=== PATIENT | female | born 1985 | race Two or more races ===

== ENCOUNTER 2024-04-07 06:05 | Emergency (ER) | payer BC, MEDICAID ==
[~2024-04-07] VITALS: Ht 160 cm; Wt 110.5 kg
[2024-04-07 06:27] LABS: Urine Bacteria None Seen /hpf (None Seen)
[2024-04-07 06:46] LABS: Urine Blood 2+ /uL (Negative); Urine Clarity Clear (Clear); Urine Color Light-Yellow (Yellow); Urine Mucus FEW (None Seen); Urine Protein, UAD Negative (Negative); Urine Specific Gravity 1.023 (1.001-1.035); Urine Squamous Epithelial Cell FEW /hpf (<5); Urine Urobilinogen Normal (Negative); Urine WBC <1 /hpf (0 - 5)
[2024-04-07 06:51] VITALS: PULSE 100; RESP 22; O2SAT 97
[2024-04-07] MEDS: ONDANSETRON ODT 4 MG TAB PO ONE (06:51)
[2024-04-07] MEDS: HYDROcodone-ACET 5/325MG TAB PO ONE (06:51)
--- NOTE | 2024-04-07 06:52 | ED.PDOC ---
General HPI Comments 38Y F with PMHx PCOS presents to ED for chief complaint lt flank pain. Additional symptoms include hematuria, urinary frequency, dysuria, vomiting, and diarrhea. Per pt, unknown if she is but LMP was "a few days ago". Pt drinks alcohol occasionally. Pt denies tobacco and illicit drug use. No known allergies. Chief Complaint: Flank Pain Time Seen by MD: 06:15 Reviewed notes: Nurses Notes, Medications, Allergies Allergies: Coded Allergies: NO KNOWN ALLERGIES (Unverified , 04/07/24) Home Meds Active Scripts Tamsulosin Hcl (Flomax) 0.4 Mg Cap, 1 CAP PO DAILY for 10 Days, #10 CAP 11 Refills Prov:DIANNA ROQUE MD 04/07/24 Ondansetron Odt 4MG Tab (ZOFRAN PO) 4 Mg Tb, 4 MG PO Q6HPRN PRN for 3 Days, #12 TAB ODT TAB-DISSOLVE IN MOUTH, THEN SWALLOW Prov:DIANNA ROQUE MD 04/07/24 Hydrocodone-Acetaminophen (Hydrocodone Bitartrate/AC 5-325 mg) 1 Tab Tab, 1 TAB PO Q6HPRN PRN for 3 Days, #12 TAB Prov:DIANNA ROQUE MD 04/07/24 Information Source: Patient Mode of Arrival: Ambulatory Severity: Moderate Timing: Other Duration: Since onset Onset: Spontaneous Symptoms: Dysuria, Frequency, Hematuria History of: None Location: (L)Flank Modifying factors: None associated signs and symptoms: Vomiting, Dysuria, Frequency, Hematuria, Other Past Medical History Past Medical History (Other): PCOS Surgical History: Denies all surgeries [employer]ER History: Ovarian Cysts (pcos) Family History Family History: Unknown Social History Smoker: Non-Smoker Alcohol: Occasionally Drugs: Denies Drug Use Lives In: Home Constitutional: denies: chills, diaphoresis, fatigue, fever, malaise, sweats, weakness, others EENTM: denies: blurred vision, double vision, ear bleeding, ear discharge, ear drainage, ear pain, ear ringing, eye pain, eye redness, hearing loss, mouth pain, mouth swelling, nasal discharge, nose bleeding, nose congestion, nose pain, photophobia, tearing, throat pain, throat swelling, voice changes, others Respiratory: denies: cough, hemoptysis, orthopnea, SOB at rest, shortness of breath, SOB with excertion, stridor, wheezing, others Cardiovascular: denies: chest pain, dizzy spells, diaphoresis, Dyspnea on exertion, edema, irregular heart beat, left arm pain, lightheadedness, palpitations, PND, syncope, others Gastrointestinal: reports: diarrhea, vomiting; denies: abdomen distended, abdominal pain, blood streaked bowels, constipated, dysphagia, difficulty swallowing, hematemesis, melena, nausea, poor appetite, poor fluid intake, rectal bleeding, rectal pain, others Genitourinary: reports: dysuria, flank pain, frequency, hematuria; denies: abnormal vagina bleeding, burning, dyspareunia, incontinence, pain, , vagina discharge, urgency, others Neurological: denies: dizziness, fainting, headache, left sided numbness, left sided weakness, numbness, paresthesia, pre-existing deficit, right sided numbness, right sided weakness, seizure, speech problems, tingling, tremors, wea kness, others Musculoskeletal: denies: back pain, gout, joint pain, joint swelling, muscle pain, muscle stiffness, neck pain, others Integumetry: denies: bruises, change in color, change in hair/nails, dryness, l aceration, lesions, lumps, rash, wounds, others Allergic/Immunocompromised: denies: Difficulty Healing, Frequent Infections, Hives, Itching, others Hematologic/Lymphatic: denies: anemia, blood clots, easy bleeding, easy bruising, swollen glands, others Endocrine: denies: excessive hunger, excessive sweating, excessive thirst, excessive urination, flushing, intolerance to cold, intolerance to heat, unexplained weight gain, unexplained weight loss, others Psychiatric: denies: anxiety, bipolar disorder, depression, hopeless, panic disorder, schizophrenia, sleepless, suicidal, others All Other Systems: Reviewed and Negative Physical Exam General Appearance: Moderate Distress HEENT: Normal ENT Inspection, Pharynx Normal, TMs Normal Neck: Full Range of Motion, Non-Tender, Normal, Normal Inspection Respiratory: Chest Non-Tender, Lungs Clear, No Accessory Muscle Use, No Respiratory Distress, Normal Breath Sounds Cardiovascular: No Edema, No JVD, No Murmur, No Gallop, Normal Peripheral Pulses, Regular Rate/Rhythm Breast Exam: Deferred Gastrointestinal: No Organomegaly, Non Tender, No Pulsatile Mass, Normal Bowel Sounds, Soft Genitalia: Deferred Pelvic: Deferred Rectal: Deferred Extremities: No calf tenderness, Normal capillary refill, Normal inspection, Normal range of motion, Non-tender, No pedal edema Musculoskeletal : Apperance: Normal Neurologic: Alert, referral agent II-XII nml as Tested, No Motor Deficits, Normal Affect, Normal Mood, No Sensory Deficits Cerebellar Function: Normal Reflexes: Normal Skin: Dry, Normal Color, Warm Lymphatic: No Adenopathy Was a procedure done? Was a procedure done?: No Differential Diagnosis Kidney stone (Female): , Appendicitis, Bowel obstruction, Cholelithiasis, Ectopic , Musculoskeletal pain, Ovarian torsion, Pyelonephritis, Renal failure, Urinary obstruction, Urolithiasis Kidney stone (Male): Bowel obstruction, Cholelithiasis, Hepatitis, Cholangitis, Pancreatitis, Pyelonephritis, Renal failure, Urinary obstruction, Urolithiasis, Urinary tract infection, N/A Penile/Scrotal: N/A Urinary Problem (Male): N/A Urinary Problem (Female): Appendicitis, Ectopic , Impaction, Intrauterine , Pyelonephritis, Urinary retention, Urolithiasis, UTI X-Ray, Labs, Meds, VS Vital Signs Date Time Temp Pulse Resp B/P (MAP) Pulse Ox O2 Delivery O2 Flow Rate FiO2 04/07/24 10:32 97.8 75 16 110/62 (78) 99 97.8 04/07/24 09:17 75 16 96 Room Air 04/07/24 09:17 98.1 75 16 103/58 (73) 96 98.1 04/07/24 06:51 100 22 97 Room Air* 0 21 04/07/24 06:51 99.1 100 22 147/86 (106) 97 99.1 04/07/24 06:13 98.1 96 22 149/104 (119) 99 Lab Test 04/07/24 06:30 04/07/24 06:15 Range/Units White Blood Count 13.3 H 4.4-10.8 10^3/uL Red Blood Count 4.45 4.0-5.20 10^6/uL Hemoglobin 12.2 12.2-16.2 g/dL Hematocrit 37.1 36.0-46.0 % Mean Corpuscular Volume 83.3 80.0-100.0 fL Mean Corpuscular Hemoglobin 27.4 L 28.0-32.0 pg Mean Corpuscular Hemoglobin Concent 32.9 32.0-36.0 g/dL Red Cell Distribution Width 15.2 H 11.8-14.3 % Platelet Count 333 140-450 10^3/uL Mean Platelet Volume 8.6 6.9-10.8 fL Neutrophils (%) (Auto) 63.7 37.0-80.0 % Lymphocytes (%) (Auto) 26.8 10.0-50.0 % Monocytes (%) (Auto) 6.5 0.0-12.0 % Eosinophils (%) (Auto) 2.7 0.0-7.0 % Basophils (%) (Auto) 0.3 0.0-2.0 % Neutrophils # (Auto) 8.4 1.6-8.6 10 ^3/uL Lymphocytes # (Auto) 3.6 0.4-5.4 10 ^3/uL Monocytes # (Auto) 0.9 0-1.3 10 ^3/uL Eosinophils # (Auto) 0.4 0-0.8 10 ^3/uL Basophils # (Auto) 0 0-0.2 10 ^3/uL Nucleated Red Blood Cells 0.0 % Sodium Level 142 136-145 mmol/L Potassium Level 3.6 3.5-5.1 mmol/L Chloride Level 111 H 98-107 mmol/L Carbon Dioxide Level 21 20-31 mmol/L Anion Gap 10 5-15 Blood Urea Nitrogen 15 9-23 mg/dL Creatinine 0.87 0.550-1.02 mg/dL Glomerular Filtration Rate Calc 88 >90 mL/min BUN/Creatinine Ratio 17.2 10.0-20.0 Serum Glucose 138 H 74-106 mg/dL Calcium Level 9.5 8.7-10.4 mg/dL Lipase 41 12-53 U/L Beta HCG, Quantitative 0.3 L 1.5-4.2 mIU/mL Urine Color Light-yellow Yellow Urine Clarity Clear Clear Urine pH 6.0 5.0-9.0 Urine Specific [place] 1.023 1.001-1.035 Urine Protein Negative Negative Urine Ketones Negative Negative Urine Blood 2+ H Negative /uL Urine Nitrite Negative Negative Urine Bilirubin Negative Negative Urine Urobilinogen Normal Negative mg/dL Urine Leukocyte Esterase Negative Negative /uL Urine RBC 25 0 - 4 /hpf Urine WBC <1 0 - 5 /hpf Urine Squamous Epithelial Cells Few <5 /hpf Urine Bacteria None seen None Seen /hpf Urine Mucus Few None Seen Urine Glucose Normal Normal mg/dL [address] [address] Ph: [phone] DIAGNOSTIC IMAGING Diagnostic Imaging Report : [id number] Signed PATIENT: LUZMARIA SIMEON MACCT: [id number] UNIT: [id number] : 1985 LOC: ER ROOM / BED: / AGE / SEX: 38 / F ADM STATUS: REG ER SERVICE 1 ORDERING PHYSICIAN: DIANNA ROQUE MD PROCEDURE(s): ABPL - CT AB PEL WO CON-NO ORAL OR IV REASON: r flank pain ORDER NUMBER(s): [id number], ACCESSION NUMBER(s): [id number] Procedure: CT CT AB PEL WO CON-NO ORAL OR IV 04/07/2024 07:28 AM Indication: r flank pain Comparison Study: None available at time of dictation. Technique: Noncontrast Axial images were obtained and reformatted in coronal and sagittal planes. All CT scans at this medical facility are performed using dose modulation techniques as appropriate to a performed exam including the following: Automated exposure control was utilized; adjustment of the MA and/or KV according to patient size; and use of iterative reconstruction technique. CT Dose: CTDI volume is 26.64 mGy. Dose-length product is 1277.74 mGy*cm FINDINGS: Imaged portions of the lung bases appear unremarkable. Limited noncontrast evaluation of the liver, gallbladder, spleen, pancreas and adrenal glands appear unremarkable. 0.8 cm isodense lesion of the left posterior mid kidney. There is mild right hydronephrosis and hydroureter with 2 obstructing calculi measuring 0.3 and 0.4 cm at the distal ureter approximately 1 cm proximal to the ureterovesicular junction. No free fluid, free air, or adenopathy. No evidence of bowel obstruction. The appendix appears normal. IMPRESSION: 1. 2 tandem 3 and 4 mm distal ureteral calculi approximately 1 cm proximal to the ureterovesicular junction resulting in mild hydroureter and hydronephrosis. 2. 0.8 cm mildly hyperdense lesion of the left kidney likely represent small hemorrhagic cyst. Follow-up outpatient ultrasound is recommended. HS:Y ATED BY: DEMAR CORBETT MD DICTATED DATE/TIME: 04/07/24800 SIGNED BY: DEMAR CORBETT MD SIGNED DATE/TIME: 04/07/24800 CC: Time of 1ST Reevaluation: 06:45 Reevaluation 1ST: Unchanged Time of 2ND Reevaluation: 09:50 Reevaluation 2ND: Resolved Patient Education/Counseling: Diagnosis, Treatment, Prognosis, Need For Follow Up, Other Family Education/Counseling: No Family Present Additional Information due to considerations for more acute intraabdominal causes of her symptoms, including renal failure, renal mass, pyelonephritis, ectopic , i considered admission and possible surgical interventions Tests ordered and results reviewed: CBC, BMP, beta HCG, lipase, UA, CT abd/pelvis WO contrast Independent historians include: None. Dr. Roque interpreted each of the tests and agrees with the result. Results and treatment discussed with the pt and medical personnel. Departure 1 Departure Time of Disposition: 09:51 Impression: Primary Impression: Ureteral stone Disposition: 01 HOME / SELF CARE / HOMELESS Condition: Good e-Prescriptions Tamsulosin Hcl (Flomax) 0.4 Mg Cap 1 CAP PO DAILY for 10 Days, #10 CAP 11 Refills Prov: DIANNA ROQUE MD 04/07/24 Ondansetron Odt 4MG Tab (ZOFRAN PO) 4 Mg Tb 4 MG PO Q6HPRN PRN for 3 Days, #12 TAB ODT TAB-DISSOLVE IN MOUTH, THEN SWALLOW Prov: DIANNA ROQUE MD 04/07/24 Hydrocodone-Acetaminophen (Hydrocodone Bitartrate/AC 5-325 mg) 1 Tab Tab 1 TAB PO Q6HPRN PRN for 3 Days, #12 TAB Prov: DIANNA ROQUE MD 04/07/24 Discharged With: Self Critical Care Note Critical Care Time?: No Stability Stability form required: No I personally scribed for DIANNA ROQUE MD ([email or web address]) on 04/07/24 at 06:52. Electronically submitted by Zandra Escobar ([email or web address]). I personally scribed for DIANNA ROQUE MD ([email or web address]) on 04/07/24 at 08:15. Electronically submitted by Zadnra Escobar ([facility]). I personally scribed for DIANNA ROQUE MD ([facility]) on 04/07/24 at 09:57. Electronically submitted by Zandra Escobar ([facility]). DIANNA ROQUE MD Apr 07, 2024 06:52
[2024-04-07 07:05] LABS: Chloride 111 mmol/L (98-107); Potassium 3.6 mmol/L (3.5-5.1); Sodium 142 mmol/L (136-145)
[2024-04-07 07:06] LABS: Anion Gap 10 (5-15); Calcium 9.5 mg/dL (8.7-10.4); Carbon Dioxide 21 mmol/L (20-31)
[2024-04-07 07:11] LABS: BUN/Creatinine Ratio 17.2 (10.0-20.0); Blood Urea Nitrogen 15 mg/dL (9-23); Glucose 138 mg/dL (74-106); Lipase 41 U/L (12-53)
[2024-04-07 07:15] LABS: Basophils # (auto) 0 10 ^3/uL (0-0.2); Basophils % (auto) 0.3 % (0.0-2.0); Eosinophils # (auto) 0.4 10 ^3/uL (0-0.8); Eosinophils % (auto) 2.7 % (0.0-7.0); Hematocrit 37.1 % (36.0-46.0); Hemoglobin 12.2 g/dL (12.2-16.2); Lymphocytes # (auto) 3.6 10 ^3/uL (0.4-5.4); Lymphocytes % (auto) 26.8 % (10.0-50.0); Mean Corpuscular Hemoglobin 27.4 pg (28.0-32.0); Mean Corpuscular Hgb Conc. 32.9 g/dL (32.0-36.0); Mean Corpuscular Volume 83.3 fL (80.0-100.0); Monocytes # (auto) 0.9 10 ^3/uL (0-1.3); Monocytes % (auto) 6.5 % (0.0-12.0); Neutrophils # (auto) 8.4 10 ^3/uL (1.6-8.6); Neutrophils % (auto) 63.7 % (37.0-80.0); Platelet Count (auto) 333 10^3/uL (140-450); Red Blood Cells 4.45 10^6/uL (4.0-5.20); Red Cell Distribution Width 15.2 % (11.8-14.3); White Blood Cell 13.3 10^3/uL (4.4-10.8)
--- NOTE | 2024-04-07 08:02 | DVH ---
Procedure: CT CT AB PEL WO CON-NO ORAL OR IV 04/07/2024 07:28 AM Indication: r flank pain Comparison Study: None available at time of dictation. Technique: Noncontrast Axial images were obtained and reformatted in coronal and sagittal planes. All CT scans at this medical facility are performed using dose modulation techniques as appropriate t o a performed exam including the following: Automated exposure control was utilized; adjustment of th e MA and/or KV according to patient size; and use of iterative reconstruction technique. CT Dose: CTDI volume is 26.64 mGy. Dose-length product is 1277.74 mGy*cm FINDINGS: Imaged portions of the lung bases appear unremarkable. Limited noncontrast evaluation of the liver, gallbladder, spleen, pancreas and adrenal glands appear unremarkable. 0.8 cm isodense lesion of the left posterior mid kidney. There is mild right hydronephr osis and hydroureter with 2 obstructing calculi measuring 0.3 and 0.4 cm at the distal ureter approxi mately 1 cm proximal to the ureterovesicular junction. No free fluid, free air, or adenopathy. No evidence of bowel obstruction. The appendix appears kat l. IMPRESSION: 1. 2 tandem 3 and 4 mm distal ureteral calculi approximately 1 cm proximal to the ureterovesicular ju nction resulting in mild hydroureter and hydronephrosis. 2. 0.8 cm mildly hyperdense lesion of the left kidney likely represent small hemorrhagic cyst. Follow -up outpatient ultrasound is recommended. HS:Y
[2024-04-07] MEDS: SODIUM CHLORIDE 0.9% 1,000 ML IV ONE (09:10)
[2024-04-07] MEDS: KETOROLAC TROMETH 30 MG/ML 1ML VIAL IV ONE (09:11)
[2024-04-07] MEDS ORDERED: TAMS-35 PO (09:55)
[2024-04-07] MEDS ORDERED: ZOFR4T PO (09:55)
[2024-04-07] MEDS ORDERED: HYDR-4902 PO (09:55)
[2024-04-07 10:32] VITALS: BP 110/62; PULSE 75; RESP 16; TEMP 97.8; O2SAT 99
== END 2024-04-07 10:33 | disposition home or self-care (01) ==
LOC: ER 06:05
DX: N13.2 Hydronephrosis with renal and ureteral calculous obstruction (principal); R10.2 Pelvic and perineal pain; Z79.899 Other long term (current) drug therapy
CPT/HCPCS: 36415; 74176; 80048; 81001; 83690; 84702; 85025; 96361; 96374; 99285; J1885; J7030; Q0162

== ENCOUNTER 2024-05-03 08:47 | Inpatient (IN) | payer BC ==
[~2024-05-03] VITALS: Ht 160 cm; Wt 111.3 kg
[~2024-05-03 08:47] MED LIST: HYDR-4902 PO; TAMS-35 PO; ZOFR4T PO
--- NOTE | 2024-05-03 09:13 | ED.PDOC ---
General HPI Comments 38 year old female presents to the ED with chief complaint of flank pain. Patient reports that she has been experiencing intermittent right sided flank pain with associated dysuria for the past month. Patient relays that she was previously diagnosed with a kidney stone a month ago and was prescribed Flomax, pain medication, and nausea medication, but has not experience relief since then. Patient denies any hematuria, N/V/D, abdominal pain, dizziness, fever, or chills. Chief Complaint: Flank Pain Time Seen by MD: 09:10 Primary Care Provider: NONE Reviewed notes: Nurses Notes, Medications, Allergies Allergies: Coded Allergies: NO KNOWN ALLERGIES (Unverified , 04/07/24) Home Meds Active Scripts Tamsulosin Hcl (Flomax) 0.4 Mg Cap, 1 CAP PO DAILY for 10 Days, #10 CAP 11 Refills Prov:DIANNA ROQUE MD 04/07/24 Ondansetron Odt 4MG Tab (ZOFRAN PO) 4 Mg Tb, 4 MG PO Q6HPRN PRN for 3 Days, #12 TAB ODT TAB-DISSOLVE IN MOUTH, THEN SWALLOW Prov:DIANNA ROQUE MD 04/07/24 Hydrocodone-Acetaminophen (Hydrocodone Bitartrate/AC 5-325 mg) 1 Tab Tab, 1 TAB PO Q6HPRN PRN for 3 Days, #12 TAB Prov:DIANNA ROQUE MD 04/07/24 Information Source: Patient Mode of Arrival: Ambulatory Severity: Moderate Inability to void: None Timing: Months Duration: Since onset Prehospital treatment: None Onset: Spontaneous Symptoms: Dysuria History of: Kidney stone Location: (R) Flank Modifying factors: None associated signs and symptoms: Flank Pain, Dysuria Past Medical History PAST MEDICAL HISTORY: Kidney Stones Surgical History: FAMILY CASEWORKER History: Ovarian Cysts Family History Family History: Reviewed,noncontributory to illness, Unknown Social History Smoker: Non-Smoker Alcohol: Occasionally Drugs: Denies Drug Use Lives In: Home Constitutional: denies: chills, diaphoresis, fatigue, fever, malaise, sweats, weakness, others EENTM: denies: blurred vision, double vision, ear bleeding, ear discharge, ear drainage, ear pain, ear ringing, eye pain, eye redness, hearing loss, mouth pain, mouth swelling, nasal discharge, nose bleeding, nose congestion, nose pa in, photophobia, tearing, throat pain, throat swelling, voice changes, others Respiratory: denies: cough, hemoptysis, orthopnea, SOB at rest, shortness of breath, SOB with excertion, stridor, wheezing, others Cardiovascular: denies: chest pain, dizzy spells, diaphoresis, Dyspnea on exertion, edema, irregular heart beat, left arm pain, lightheadedness, palpitations, PND, syncope, others Gastrointestinal: denies: abdomen distended, abdominal pain, blood streaked bowels, constipated, diarrhea, dysphagia, difficulty swallowing, hematemesis, melena, nausea, poor appetite, poor fluid intake, rectal bleeding, rectal pain, vomiting, others Genitourinary: reports: dysuria, flank pain (Rt); denies: abnormal vagina bleeding, burning, dyspareunia, frequency, hematuria, incontinence, pain, , vagina discharge, urgency, others Neurological: denies: dizziness, fainting, headache, left sided numbness, left sided weakness, numbness, paresthesia, pre-existing deficit, right sided numbness, right sided weakness, seizure, speech problems, tingling, tremors, weakness, others Musculoskeletal: denies: back pain, gout, joint pain, joint swelling, muscle pain, muscle stiffness, neck pain, others Integumetry: denies: bruises, change in color, change in hair/nails, dryness, laceration, lesions, lumps, rash, wounds, others Allergic/Immunocompromised: denies: Difficulty Healing, Frequent Infections, Hives, Itching, others Hematologic/Lymphatic: denies: anemia, blood clots, easy bleeding, easy bruising, swollen glands, others Endocrine: denies: excessive hunger, excessive sweating, excessive thirst, excessive urination, flushing, intolerance to cold, intolerance to heat, unexplained weight gain, unexplained weight loss, others Psychiatric: denies: anxiety, bipolar disorder, depression, hopeless, panic disorder, schizophrenia, sleepless, suicidal, others All Other Systems: Reviewed and Negative Physical Exam General Appearance: Moderate Distress, Obese HEENT: Normal ENT Inspection, PERRL/EOMI Neck: Full Range of Motion, Non-Tender, Normal, Normal Inspection Respiratory: Chest Non-Tender, Lungs Clear, No Accessory Muscle Use, No Respiratory Distress, Normal Breath Sounds Cardiovascular: No Edema, No JVD, No Murmur, No Gallop, Normal Peripheral P ulses, Regular Rate/Rhythm Breast Exam: Deferred Gastrointestinal: No Organomegaly, No Pulsatile Mass, Normal Bowel Sounds, Soft Genitalia: Deferred Pelvic: Deferred Rectal: Deferred Extremities: No calf tenderness, Normal capillary refill, Normal inspection, Normal range of motion, Non-tender, No pedal edema Musculoskeletal : Apperance: Normal Neurologic: Alert, renewals manager II-XII nml as Tested, No Motor Deficits, Normal Affect, Normal Mood, No Sensory Deficits Cerebellar Function: Normal Reflexes: Normal Skin: Dry, Normal Color, Warm Peripheral Pulses: 3+ Radial (R), 3+ Radial (L) Lymphatic: No Adenopathy Was a procedure done? Was a procedure done?: No Differential Diagnosis Kidney stone (Female): Musculoskeletal pain, Pyelonephritis, Urinary obstruction, Urolithiasis Urinary Problem (Female): UTI X-Ray, Labs, Meds, VS Vital Signs Date Time Temp Pulse Resp B/P (MAP) Pulse Ox O2 Delivery O2 Flow Rate FiO2 05/03/24 12:57 Room Air* 0 21 05/03/24 12:15 97.8 63 14 127/56 (79) 98 97.8 05/03/24 12:10 63 14 127/56 05/03/24 11:12 71 24 142/107 05/03/24 10:55 71 18 142/107 (119) 100 05/03/24 09:34 80 20 99 Room Air 05/03/24 09:34 98.6 80 20 140/103 (115) 99 98.6 05/03/24 09:01 97.6 85 20 127/97 (107) 99 Lab Test 05/03/24 09:15 05/03/24 09:00 Range/Units White Blood Count 12.1 H 4.4-10.8 10^3/uL Red Blood Count 4.58 4.0-5.20 10^6/uL Hemoglobin 12.4 12.2-16.2 g/dL Hematocrit 37.4 36.0-46.0 % Mean Corpuscular Volume 81.8 80.0-100.0 fL Mean Corpuscular Hemoglobin 27.1 L 28.0-32.0 pg Mean Corpuscular Hemoglobin Concent 33.1 32.0-36.0 g/dL Red Cell Distribution Width 15.3 H 11.8-14.3 % Platelet Count 277 140-450 10^3/uL Mean Platelet Volume 9.2 6.9-10.8 fL Neutrophils (%) (Auto) 70.0 37.0-80.0 % Lymphocytes (%) (Auto) 21.6 10.0-50.0 % Monocytes (%) (Auto) 6.1 0.0-12.0 % Eosinophils (%) (Auto) 1.7 0.0-7.0 % Basophils (%) (Auto) 0.6 0.0-2.0 % Neutrophils # (Auto) 8.5 1.6-8.6 10 ^3/uL Lymphocytes # (Auto) 2.6 0.4-5.4 10 ^3/uL Monocytes # (Auto) 0.7 0-1.3 10 ^3/uL Eosinophils # (Auto) 0.2 0-0.8 10 ^3/uL Basophils # (Auto) 0.1 0-0.2 10 ^3/uL Nucleated Red Blood Cells 0.0 % Sodium Level 139 136-145 mmol/L Potassium Level 3.9 3.5-5.1 mmol/L Chloride Level 109 H 98-107 mmol/L Carbon Dioxide Level 21 20-31 mmol/L Anion Gap 9 5-15 Blood Urea Nitrogen 13 9-23 mg/dL Creatinine 0.95 0.550-1.02 mg/dL Glomerular Filtration Rate Calc 79 >90 mL/min BUN/Creatinine Ratio 13.7 10.0-20.0 Serum Glucose 105 74-106 mg/dL Calcium Level 9.5 8.7-10.4 mg/dL Beta HCG, Quantitative 1.8 1.5-4.2 mIU/mL Urine Color Light-yellow Yellow Urine Clarity Clear Clear Urine pH 7.5 5.0-9.0 Urine Specific [place] 1.019 1.001-1.035 Urine Protein Negative Negative Urine Ketones Negative Negative Urine Blood 1+ H Negative /uL Urine Nitrite Negative Negative Urine Bilirubin Negative Negative Urine Urobilinogen Normal Negative mg/dL Urine Leukocyte Esterase Negative Negative /uL Urine RBC 13 0 - 4 /hpf Urine WBC 1 0 - 5 /hpf Urine Squamous Epithelial Cells Few <5 /hpf Urine Bacteria None seen None Seen /hpf Urine Glucose Normal Normal mg/dL Current Medications Medications (Trade) Dose Ordered Sig/[place]ak Route Start Time Stop Time Status Last Admin Sodium Chloride 1,000 ml @ 1,000 mls/hr Q1H ONCE IV 05/03/24 09:15 05/03/24 10:14 DC 05/03/24 09:34 Acetaminophen/ Hydrocodone Bitart (Addy 5/325MG Tab) 1 tab ONCE ONCE PO 05/03/24 09:45 05/03/24 09:46 DC 05/03/24 09:42 Lorazepam (Ativan Tablet) 0.5 mg ONCE ONCE PO 05/03/24 10:30 05/03/24 10:31 DC 05/03/24 10:39 Morphine Sulfate 4 mg ONCE ONCE IV 05/03/24 11:00 05/03/24 11:01 DC 05/03/24 11:12 Ondansetron HCl (Zofran) 4 mg ONCE ONCE IV 05/03/24 11:00 05/03/24 11:01 DC 05/03/24 11:05 Patient alert. Complaining of right-sided flank pain. History of kidney stone. Vitals stable. Reviewed her previous visit. Establish intravenous access. Was given fluids. Explained to the patient. Continue cardiac monitoring. Time of 1ST Reevaluation: 10:10 Reevaluation 1ST: Unchanged Patient Education/Counseling: Diagnosis, Treatment Family Education/Counseling: No Family Present Additional Information I reviewed the following notes from patient's past medical encounters: 04/07/24 for Ureteral stone The following tests were ordered, and results were reviewed by me: Beta HCG, BMP, UA, and CBC I discussed treatment and results with medical personnel. Departure 1 Departure Time of Disposition: 09:35 Impression: Primary Impression: Kidney stone Disposition: ADMITTED INPATIENT Admit to: Med Surg Condition: Guarded Critical Care Note Critical Care Time?: Yes (45 min-critical care time only) Stability Stability form required: No Heart Score Heart Score: Heart Score Response (Comments) Value History N/A 0 EKG N/A 0 Age N/A 0 Risk Factors N/A 0 Troponin N/A 0 Total 0 I personally scribed for QUETA BURNS MD ([email or web address]) on 05/03/24 at 09:13. Electronically submitted by Aidan Chin ([email or web address]). I personally scribed for QUETA BURNS MD ([email or web address]) on 05/03/24 at 16:05. Electronically submitted by Aidan Chin ([email or web address]). QUETA BURNS MD May 03, 2024 09:13
[2024-05-03 09:25] LABS: Urine Bacteria None Seen /hpf (None Seen)
[2024-05-03] MEDS: SODIUM CHLORIDE 0.9% 1,000 ML IV ONE ×2 (09:34→13:42)
[2024-05-03] MEDS: HYDROcodone-ACET 5/325MG TAB PO ONE (09:42)
[2024-05-03 09:55] LABS: Urine Blood 1+ /uL (Negative); Urine Clarity Clear (Clear); Urine Color Light-Yellow (Yellow); Urine Protein, UAD Negative (Negative); Urine Specific Gravity 1.019 (1.001-1.035); Urine Urobilinogen Normal (Negative); Urine WBC 1 /hpf (0 - 5); Urine pH 7.5 (5.0-9.0)
[2024-05-03 10:10] LABS: Basophils # (auto) 0.1 10 ^3/uL (0-0.2); Eosinophils # (auto) 0.2 10 ^3/uL (0-0.8); Eosinophils % (auto) 1.7 % (0.0-7.0); Hemoglobin 12.4 g/dL (12.2-16.2); Lymphocytes # (auto) 2.6 10 ^3/uL (0.4-5.4); Monocytes # (auto) 0.7 10 ^3/uL (0-1.3); Neutrophils # (auto) 8.5 10 ^3/uL (1.6-8.6)
[2024-05-03 10:16] LABS: Basophils % (auto) 0.6 % (0.0-2.0); Hematocrit 37.4 % (36.0-46.0); Lymphocytes % (auto) 21.6 % (10.0-50.0); Mean Corpuscular Hemoglobin 27.1 pg (28.0-32.0); Mean Corpuscular Hgb Conc. 33.1 g/dL (32.0-36.0); Mean Corpuscular Volume 81.8 fL (80.0-100.0); Monocytes % (auto) 6.1 % (0.0-12.0); Platelet Count (auto) 277 10^3/uL (140-450); Potassium 3.9 mmol/L (3.5-5.1); Red Blood Cells 4.58 10^6/uL (4.0-5.20); Red Cell Distribution Width 15.3 % (11.8-14.3); Sodium 139 mmol/L (136-145); White Blood Cell 12.1 10^3/uL (4.4-10.8)
[2024-05-03 10:17] LABS: Anion Gap 9 (5-15); Calcium 9.5 mg/dL (8.7-10.4); Carbon Dioxide 21 mmol/L (20-31)
[2024-05-03 10:22] LABS: BUN/Creatinine Ratio 13.7 (10.0-20.0); Blood Urea Nitrogen 13 mg/dL (9-23); Glucose 105 mg/dL (74-106)
[2024-05-03] MEDS: LORazepam 0.5 MG TAB PO ONE (10:39)
[2024-05-03 10:40] LABS: Chloride 109 mmol/L (98-107)
[2024-05-03] MEDS: ONDANSETRON HCL 4 MG/2 ML VIAL IV ONE (11:05)
[2024-05-03] MEDS: MORPHINE SULFATE 4 MG/ML SYR/VIAL IV ONE (11:12)
--- NOTE | 2024-05-03 12:46 | DVH ---
RENAL ULTRASOUND CLINICAL HISTORY: kiney stone, possible left kidney lesion/hemorragic cyst TECHNIQUE: Multiple ultrasound images of the kidneys and bladder were obtained. COMPARISON: CT abdomen and pelvis 04/07/2024 FINDINGS: The right kidney measures 12 cm in length. The left kidney measures 10.9 cm. There is a 1 cm echogeni c focus in the lower pole of the right kidney which may represent a calculus. There is no hydronephr osis. The bladder is significantly contracted with prevoid volume measuring 22 cc, limiting evaluation. IMPRESSION: 1. 1 cm echogenic focus in the lower pole of the right kidney may represent a nonobstructing calculus . HS:Y
[2024-05-03] MEDS ORDERED: ONDANSETRON HCL 4 MG/2 ML VIAL IV PRN (13:30)
--- NOTE | 2024-05-03 13:33 | DVHHP2 ---
History of Present Illness Reason for Visit: Abdominal pain History of Present Illness Adry Moore is a 38-year-old female with recent diagnosis of kidney stones, who came with complaints of abdominal pain. Patent was seen here about 1 month ago and diagnosed with kidney stones. She came back to the ER today because she her symptoms have not improved. Repeat Ct shows the stones have moved but are still present. Review of Systems Constitutional: No: Fever, Chills, Sweats, Weakness, Malaise, Other Eyes: No: Pain, Vision change, Conjunctivae inflammation, Eyelid inflammation, Other, Redness ENT: No: Ear pain, Ear discharge, Nose pain, Nose discharge, Nose congestion, Mouth pain, Mouth swelling, Throat pain, Throat swelling, Other Respiratory: No: Cough, Dry, Shortness of breath, SOB with excertion, Wheezing, Hemoptysis, Pleuritic Pain, Sputum, Wheezing, Other Cardiovascular: No: Chest Pain, Palpitations, Orthopnea, Paroxysmal Noc. Dyspnea, Edema, Lt Headedness, Other Gastrointestinal: No: Nausea, Vomiting, Abdominal Pain, Diarrhea, Constipation, Melena, Hematochezia, Other Genitourinary: No Dysuria, No Frequency, No Incontinence, No Hematuria, No Retention, No Other Musculoskeletal: back pain (right flank pain); No: other, neck pain, shoulder pain, arm pain, hand pain, leg pain, foot pain Skin: No: Rash, Lesions, Jaundice, Bruising, Other Neurological: No: Weakness, Numbness, Incoordination, Change in speech, Confusion, Seizures, Other Allergies: Coded Allergies: NO KNOWN ALLERGIES (Unverified , 04/07/24) Exam Vital Signs Vital Signs Date Time Temp Pulse Resp B/P (MAP) Pulse Ox O2 Delivery O2 Flow Rate FiO2 05/03/24 12:57 Room Air* 0 21 05/03/24 12:15 97.8 63 14 127/56 (79) 98 97.8 General Appearance: Alert, Oriented X3, Cooperative, mild distress HEENT: Atraumatic, PERRLA Respiratory: Clear to auscultation, Normal air movement Cardiovascular: Regular rate, Normal S1, Normal S2 Abdominal: Normal bowel sounds, Soft Extremities: No clubbing, No cyanosis, No edema, Normal pulses Skin: No rashes, No breakdown, No significant lesion Neuro: Normal gait, Normal speech, Strength at 5/5 X4 ext, Normal tone Psych/Mental Status: Mental status NL, Mood NL Labs/Xrays Labs Test 05/03/24 09:15 05/03/24 09:00 Range/Units White Blood Count 12.1 H 4.4-10.8 10^3/uL Red Blood Count 4.58 4.0-5.20 10^6/uL Hemoglobin 12.4 12.2-16.2 g/dL Hematocrit 37.4 36.0-46.0 % Mean Corpuscular Volume 81.8 80.0-100.0 fL Mean Corpuscular Hemoglobin 27.1 L 28.0-32.0 pg Mean Corpuscular Hemoglobin Concent 33.1 32.0-36.0 g/dL Red Cell Distribution Width 15.3 H 11.8-14.3 % Platelet Count 277 140-450 10^3/uL Mean Platelet Volume 9.2 6.9-10.8 fL Neutrophils (%) (Auto) 70.0 37.0-80.0 % Lymphocytes (%) (Auto) 21.6 10.0-50.0 % Monocytes (%) (Auto) 6.1 0.0-12.0 % Eosinophils (%) (Auto) 1.7 0.0-7.0 % Basophils (%) (Auto) 0.6 0.0-2.0 % Neutrophils # (Auto) 8.5 1.6-8.6 10 ^3/uL Lymphocytes # (Auto) 2.6 0.4-5.4 10 ^3/uL Monocytes # (Auto) 0.7 0-1.3 10 ^3/uL Eosinophils # (Auto) 0.2 0-0.8 10 ^3/uL Basophils # (Auto) 0.1 0-0.2 10 ^3/uL Nucleated Red Blood Cells 0.0 % Sodium Level 139 136-145 mmol/L Potassium Level 3.9 3.5-5.1 mmol/L Chloride Level 109 H 98-107 mmol/L Carbon Dioxide Level 21 20-31 mmol/L Anion Gap 9 5-15 Blood Urea Nitrogen 13 9-23 mg/dL Creatinine 0.95 0.550-1.02 mg/dL Glomerular Filtration Rate Calc 79 >90 mL/min BUN/Creatinine Ratio 13.7 10.0-20.0 Serum Glucose 105 74-106 mg/dL Calcium Level 9.5 8.7-10.4 mg/dL Beta HCG, Quantitative 1.8 1.5-4.2 mIU/mL Urine Color Light-yellow Yellow Urine Clarity Clear Clear Urine pH 7.5 5.0-9.0 Urine Specific [place] 1.019 1.001-1.035 Urine Protein Negative Negative Urine Ketones Negative Negative Urine Blood 1+ H Negative /uL Urine Nitrite Negative Negative Urine Bilirubin Negative Negative Urine Urobilinogen Normal Negative mg/dL Urine Leukocyte Esterase Negative Negative /uL Urine RBC 13 0 - 4 /hpf Urine WBC 1 0 - 5 /hpf Urine Squamous Epithelial Cells Few <5 /hpf Urine Bacteria None seen None Seen /hpf Urine Glucose Normal Normal mg/dL RENAL ULTRASOUND FINDINGS: The right kidney measures 12 cm in length. The left kidney measures 10.9 cm. There is a 1 cm echogenic focus in the lower pole of the right kidney which may represent a calculus. There is no hydronephrosis. The bladder is significantly contracted with prevoid volume measuring 22 cc, limiting evaluation. IMPRESSION: 1. 1 cm echogenic focus in the lower pole of the right kidney may represent a nonobstructing calculus. CT ABDOMEN AND PELVIS WITHOUT CONTRAST FINDINGS: Evaluation of the abdomen and pelvis is limited without intravenous contrast. There has been interval migration of the previously seen right distal sub 5 mm calculi. 1 of the calculus is seen along the right posterolateral bladder and th e other is just proximal to the UVJ. There is right hydroureteronephrosis which appears mildly increased from the prior study. There is no evidence of left renal nephrolithiasis or hydronephrosis. There is no left ureteral calculus or hydroureter. There is a stable small hyperdense cyst in the left kidney. The liver, gallbladder, pancreas, kidneys, adrenal glands, and spleen appear within normal limits. There is no gross evidence of abdominal lymphadenopathy. There is no free fluid or free air. The stomach grossly appears unremarkable. The small and large bowel loops demonstrate normal caliber. The abdominal aorta and IVC appear within normal limits. The bladder otherwise appears unremarkable for the degree of distention. Pelvic organ appears within normal limits. There is no gross evidence of a pelvic mass. There is no free fluid collection. Lung bases are clear. There is no acute osseous abnormality. IMPRESSION: 1. Interval migration of the previously seen right distal sub 5 mm calculi. 1 of the calculus is seen along the right posterior bladder wall and the other is just proximal to the right UVJ. 2. There is right hydroureteronephrosis which appears mildly increased from the prior study. Assessment/Plan Assessment/Plan Assessment: Kidney stone, Right hydroureteronephrosis, Plan: Admit to Med-Surg, Kidney ultrasound, CT Abd/Pelvis, IV hydration, Pain management, Antiemetics, Home medications reconciled, Consider urology consult if symptoms do not improve, Plan discussed with: Patient My Orders Orders - MELIA IYER Procedure Category Date Status Time Kidney US 05/03/24 Resulted 12:01 Ct Ab Pel Wo Con-No CT 05/03/24 Logged Oral Or Iv 13:17 Admit ADMIT 05/03/24 Transmitted 13:24 Code Status CODE 05/03/24 Transmitted 13:24 Hydrocodone-Acet PHA 05/03/24 Transmitted 5/325mg Tab ([place] 13:30 Ondansetron Hcl PHA 05/03/24 Transmitted (Zofran) 13:30 Docusate Sodium PHA 05/03/24 Transmitted Capsule ([place]ace 13:30 Complete Blood Count LAB 05/04/24 Verified 04:00 Comprehensive LAB 05/04/24 Verified Metabolic Panel 04:00 Condition: Serious REYNA 05/03/24 Transmitted 13:24 Acetaminophen Tablet PHA 05/03/24 Transmitted (Tylenol Tablet) 13:30 Ketorolac Injection PHA 05/03/24 Transmitted (Toradol Injection) 13:30 Date of Service: May 03, 2024 Billing Provider: MELIA IYER Common Visit Codes: [id number] INP/OBS CARE (MOD) MELIA IYER May 03, 2024 13:33
--- NOTE | 2024-05-03 13:53 | DVH ---
CT ABDOMEN AND PELVIS WITHOUT CONTRAST CLINICAL HISTORY: kidney stone/cyst TECHNIQUE: Multiple contiguous axial images of the abdomen and pelvis without intravenous contrast. The images were reformatted degenerate coronal and sagittal reconstructions. All CT scans at this medical facility are performed using dose modulation techniques as appropriate t o a performed exam including the following:Automated exposure control was utilized; adjustment of the MA and/or KV according to patient size; and use of iterative reconstruction technique. Radiation Dose Information: CT Dose: CTDI volume is 25 mGy. Dose-length product is 13 30 mGy*cm Comparison: CT CT AB PEL WO CON-NO ORAL OR IV on DOS: 04/07/24 FINDINGS: Evaluation of the abdomen and pelvis is limited without intravenous contrast. There has been interval migration of the previously seen right distal sub 5 mm calculi. 1 of the calc ulus is seen along the right posterolateral bladder and the other is just proximal to the UVJ. There is right hydroureteronephrosis which appears mildly increased from the prior study. There is no evide nce of left renal nephrolithiasis or hydronephrosis. There is no left ureteral calculus or hydrourete r. There is a stable small hyperdense cyst in the left kidney. The liver, gallbladder, pancreas, kidneys, adrenal glands, and spleen appear within normal limits. There is no gross evidence of abdominal lymphadenopathy. There is no free fluid or free air. The stomach grossly appears unremarkable. The small and large bowel loops demonstrate normal caliber . The abdominal aorta and IVC appear within normal limits. The bladder otherwise appears unremarkable for the degree of distention. Pelvic organ appears within normal limits. There is no gross evidence of a pelvic mass. There is no free fluid collection. Lung bases are clear. There is no acute osseous abnormality. IMPRESSION: 1. Interval migration of the previously seen right distal sub 5 mm calculi. 1 of the calculus is seen along the right posterior bladder wall and the other is just proximal to the right UVJ. 2. There is right hydroureteronephrosis which appears mildly increased from the prior study. HS:Y
[2024-05-03] MEDS: KETOROLAC TROMETH 30 MG/ML 1ML VIAL IV PRN (14:40)
[2024-05-03 17:34] VITALS: BP 147/87; PULSE 72; RESP 16; TEMP 97.8; O2SAT 98
[2024-05-03 17:49] VITALS: BP 147/87; PULSE 72; RESP 16; TEMP 97.8; O2SAT 98
[2024-05-03] MEDS: TAMSULOSIN HYDROCHLORIDE 0.4 MG CAP PO SCH (18:38)
[2024-05-03 20:54] VITALS: BP 115/67; PULSE 70; RESP 20; TEMP 98.7; O2SAT 100
[2024-05-03] MEDS: DOCUSATE SOD 100 MG CAP PO PRN (21:58)
[2024-05-03] MEDS: ACETAMINOPHEN 325 MG TAB PO PRN (21:59)
[2024-05-04 01:17] VITALS: BP 106/66; PULSE 67; RESP 19; TEMP 98.2; O2SAT 93
[2024-05-04 04:38] VITALS: BP 121/71; PULSE 71; RESP 17; TEMP 97.7; O2SAT 95
[2024-05-04 06:24] LABS: Basophils # (auto) 0 10 ^3/uL (0-0.2); Basophils % (auto) 0.5 % (0.0-2.0); Eosinophils # (auto) 0.2 10 ^3/uL (0-0.8); Eosinophils % (auto) 2.5 % (0.0-7.0); Hemoglobin 11.6 g/dL (12.2-16.2); Lymphocytes # (auto) 2.2 10 ^3/uL (0.4-5.4); Lymphocytes % (auto) 33.3 % (10.0-50.0); Mean Corpuscular Hemoglobin 27.3 pg (28.0-32.0); Mean Corpuscular Hgb Conc. 33.1 g/dL (32.0-36.0); Mean Corpuscular Volume 82.6 fL (80.0-100.0); Monocytes # (auto) 0.5 10 ^3/uL (0-1.3); Neutrophils # (auto) 3.7 10 ^3/uL (1.6-8.6); Neutrophils % (auto) 55.7 % (37.0-80.0); Nucleated Red Blood Cells % 0.1 %; Platelet Count (auto) 228 10^3/uL (140-450); Red Blood Cells 4.24 10^6/uL (4.0-5.20); White Blood Cell 6.7 10^3/uL (4.4-10.8)
[2024-05-04 06:37] LABS: Alanine Aminotransferase 22 U/L (7-40); Albumin 3.8 g/dL (3.2-4.8); Alkaline Phosphatase 94 U/L (46-116); Anion Gap 6 (5-15); Aspartate Aminotransferase 18 U/L (13-40); BUN/Creatinine Ratio 12.9 (10.0-20.0); Bilirubin, Total 0.5 mg/dL (0.2-1.0); Calcium 9.1 mg/dL (8.7-10.4); Carbon Dioxide 24 mmol/L (20-31); Glucose 99 mg/dL (74-106); Sodium 141 mmol/L (136-145); Total Protein 6.1 g/dL (5.7-8.2)
[2024-05-04 06:41] LABS: Chloride 111 mmol/L (98-107); Potassium 3.5 mmol/L (3.5-5.1)
[2024-05-04 06:42] LABS: Blood Urea Nitrogen 9 mg/dL (9-23)
[2024-05-04 08:44] VITALS: BP 101/50; PULSE 68; RESP 18; TEMP 98.1; O2SAT 97
[2024-05-04 12:43] VITALS: BP 116/53; PULSE 80; RESP 18; TEMP 97.9; O2SAT 97
--- NOTE | 2024-05-04 13:10 | DVHPN2 ---
Reviewed: Care Plan, H&P, Labs, Medications, Previous Orders, Radiology Changes from previous H/P or p: No Changes Eyes: No Pain, No Vision change, No Conjunctivae inflammation, No Eyelid inflammation, No Other, No Redness ENT: No Ear pain, No Ear discharge, No Nose pain, No Nose discharge, No Nose congestion, No Mouth pain, No Mouth swelling, No Throat pain, No Throat swelling, No Other Cardiovascular: No Chest Pain, No Palpitations, No Orthopnea, No Paroxysmal Noc. Dyspnea, No Edema, No Lt Headedness, No Other Respiratory: No Cough, No Dry, No Shortness of breath, No SOB with excertion, No Wheezing, No Hemoptysis, No Pleuritic Pain, No Sputum, No Other Gastrointestinal: No Nausea, No Vomiting, No Abdominal Pain, No Diarrhea, No Constipation, No Melena, No Hematochezia, No Other Genitourinary: No Dysuria, No Frequency, No Incontinence, No Hematuria, No Retention, No Other Musculoskeletal: No other, No neck pain, No shoulder pain, No arm pain; back pain (right flank pain); No hand pain, No leg pain, No foot pain Skin: No Rash, No Lesions, No Jaundice, No Bruising, No Other Objective Vitals Vital Signs Date Time Temp Pulse Resp B/P (MAP) Pulse Ox O2 Delivery O2 Flow Rate FiO2 05/04/24 12:43 97.9 80 18 116/53 (74) 97 97.9 05/03/24 17:49 Room Air* 0 21 Intake/Output Intake and Output 05/04/24 07:00 Intake Total 1400 ml Balance 1400 ml Intake Oral 400 ml IV Total 1000 ml # Voids 1 Medications Current Medications Medications Dose Ordered Sig/[place] Route Start Time Stop Time Status Last Admin Dose Admin Acetaminophen/ Hydrocodone Bitart 1 tab Q4HP PRN PO 05/03/24 13:30 Ondansetron HCl 4 mg Q4HP PRN IV 05/03/24 13:30 Docusate Sodium 100 mg BIDPRN PRN PO 05/03/24 13:30 05/03/24 21:58 100 MG Acetaminophen 650 mg Q6HP PRN PO 05/03/24 13:30 05/03/24 21:59 650 MG Ketorolac Tromethamine 30 mg Q6HPRN PRN IV 05/03/24 13:30 05/08/24 13:29 05/03/24 14:40 30 MG Tamsulosin HCl 0.4 mg QPM PO 05/03/24 18:00 05/03/24 18:38 0.4 MG Laboratory Results Laboratory Tests 05/04/24 05:04 Chemistry Test 05/04/24 05:04 Albumin 3.8 g/dL (3.2-4.8) Calcium Level 9.1 mg/dL (8.7-10.4) Total Protein 6.1 g/dL (5.7-8.2) LFT Test 05/04/24 05:04 Alanine Aminotransferase (ALT) 22 U/L (7-40) Alkaline Phosphatase 94 U/L (46-116) Aspartate Amino Transferase (AST) 18 U/L (13-40) Total Bilirubin 0.5 mg/dL (0.2-1.0) Urinalysis Test 05/03/24 09:00 Urine Color Light-yellow (Yellow) Urine Clarity Clear (Clear) Urine pH 7.5 (5.0-9.0) Urine Specific [place] 1.019 (1.001-1.035) Urine Protein Negative (Negative) Urine Ketones Negative (Negative) Urine Blood 1+ /uL (Negative) H Urine Nitrite Negative (Negative) Urine Bilirubin Negative (Negative) Urine Urobilinogen Normal mg/dL (Negative) Urine Leukocyte Esterase Negative /uL (Negative) Urine RBC 13 /hpf (0 - 4) Urine WBC 1 /hpf (0 - 5) Urine Squamous Epithelial Cells Few /hpf (<5) Urine Bacteria None seen /hpf (None Seen) Urine Glucose Normal mg/dL (Normal) Labs and/or images reviewed: Labs reviewed by me, Image(s) reviewed by me Assessment/Plan Assessment/Plan Right flank Pain 5 mm right distal ureteral calculus with hydronephrosis: Flomax [place], consult for Urology Dr. Ulloa History of kidney stones Acute dehydration: IV fluids Plan discussed with: Patient Date of Service: May 04, 2024 Billing Provider: MAN CARR MD Common Visit Codes: [id number] INP/OBS CARE(HIGH) MAN CARR MD May 04, 2024 13:10
[2024-05-04] MEDS: SODIUM CHLORIDE 0.9% 1,000 ML IV SCH (16:30)
[2024-05-04 16:44] VITALS: BP 104/46; PULSE 70; RESP 18; TEMP 97.6; O2SAT 99
[2024-05-04] MEDS: HYDROcodone-ACET 5/325MG TAB PO PRN (17:55)
[2024-05-04 21:00] VITALS: BP 121/53; PULSE 80; RESP 19; TEMP 98.4; O2SAT 96
[2024-05-05 01:00] VITALS: BP 124/59; PULSE 76; RESP 18; TEMP 98; O2SAT 96
[2024-05-05 05:00] VITALS: BP 109/47; PULSE 90; RESP 18; TEMP 98.5; O2SAT 95
[2024-05-05 08:00] VITALS: PULSE 80; RESP 18; O2SAT 96
[2024-05-05 09:00] VITALS: BP 117/64; PULSE 80; RESP 18; TEMP 98.4; O2SAT 96
--- NOTE | 2024-05-05 11:29 | DVHPN2 ---
Reviewed: Care Plan, H&P, Labs, Medications, Previous Orders, Radiology Changes from previous H/P or p: No Changes Eyes: No Pain, No Vision change, No Conjunctivae inflammation, No Eyelid inflammation, No Other, No Redness ENT: No Ear pain, No Ear discharge, No Nose pain, No Nose discharge, No Nose congestion, No Mouth pain, No Mouth swelling, No Throat pain, No Throat swelling, No Other Cardiovascular: No Chest Pain, No Palpitations, No Orthopnea, No Paroxysmal Noc. Dyspnea, No Edema, No Lt Headedness, No Other Respiratory: No Cough, No Dry, No Shortness of breath, No SOB with excertion, No Wheezing, No Hemoptysis, No Pleuritic Pain, No Sputum, No Other Gastrointestinal: No Nausea, No Vomiting, No Abdominal Pain, No Diarrhea, No Constipation, No Melena, No Hematochezia, No Other Genitourinary: No Dysuria, No Frequency, No Incontinence, No Hematuria, No Retention, No Other Musculoskeletal: No other, No neck pain, No shoulder pain, No arm pain; back pain (right flank pain); No hand pain, No leg pain, No foot pain Skin: No Rash, No Lesions, No Jaundice, No Bruising, No Other Objective Vitals Vital Signs Date Time Temp Pulse Resp B/P (MAP) Pulse Ox O2 Delivery O2 Flow Rate FiO2 05/05/24 09:00 98.4 80 18 117/64 (81) 96 98.4 05/05/24 08:00 Nasal Cannula* 2 28 Intake/Output Intake and Output 05/05/24 07:00 Intake Total 1500 ml Output Total 800 ml Balance 700 ml Intake Oral 1500 ml Output Urine Total 800 ml # Voids 7 # Bowel Movements 2 Medications Current Medications Medications Dose Ordered Sig/[place] Route Start Time Stop Time Status Last Admin Dose Admin Acetaminophen/ Hydrocodone Bitart 1 tab Q4HP PRN PO 05/03/24 13:30 05/04/24 17:55 1 TAB Ondansetron HCl 4 mg Q4HP PRN IV 05/03/24 13:30 Docusate Sodium 100 mg BIDPRN PRN PO 05/03/24 13:30 05/03/24 21:58 100 MG Acetaminophen 650 mg Q6HP PRN PO 05/03/24 13:30 05/05/24 06:54 650 MG Ketorolac Tromethamine 30 mg Q6HPRN PRN IV 05/03/24 13:30 05/08/24 13:29 05/03/24 14:40 30 MG Tamsulosin HCl 0.4 mg QPM PO 05/03/24 18:00 05/04/24 17:54 0.4 MG Sodium Chloride 1,000 ml @ 150 mls/hr Q6H40M IV 05/04/24 13:30 05/05/24 06:54 150 MLS/HR Laboratory Results Laboratory Tests 05/04/24 05:04 Urinalysis Test 05/03/24 09:00 Urine Color Light-yellow (Yellow) Urine Clarity Clear (Clear) Urine pH 7.5 (5.0-9.0) Urine Specific [place] 1.019 (1.001-1.035) Urine Protein Negative (Negative) Urine Ketones Negative (Negative) Urine Blood 1+ /uL (Negative) H Urine Nitrite Negative (Negative) Urine Bilirubin Negative (Negative) Urine Urobilinogen Normal mg/dL (Negative) Urine Leukocyte Esterase Negative /uL (Negative) Urine RBC 13 /hpf (0 - 4) Urine WBC 1 /hpf (0 - 5) Urine Squamous Epithelial Cells Few /hpf (<5) Urine Bacteria None seen /hpf (None Seen) Urine Glucose Normal mg/dL (Normal) Labs and/or images reviewed: Labs reviewed by me, Image(s) reviewed by me Assessment/Plan Assessment/Plan Right flank Pain 5 mm right distal ureteral calculus with hydronephrosis: Flomax [place], consult for Urology Dr. Artemio sweet, advised outpatient follow up in two weeks History of kidney stones Acute dehydration: IV fluids Shortness of breath new onset: Flu test COVID test chest x-ray Rocephin azithromycin IV Plan discussed with: Patient My Orders Orders - MAN CARR MD Procedure Category Date Status Time * Urology Consult CONS 05/04/24 Verified 13:05 Sodium Chloride 0.9% PHA 05/04/24 In Process 13:30 Regular Diet DIET 05/04/24 Transmitted Lunch Mrsa Screen [place] 05/04/24 In Process 15:44 Covid19 Antigen [place] LAB 05/05/24 Transmitted Rapid Influenza A&B LAB 05/05/24 Transmitted 11:22 Chest Xray 1 View XY 05/05/24 Logged 11:22 Date of Service: May 05, 2024 Billing Provider: MAN CARR MD Common Visit Codes: [id number] INP/OBS CARE(HIGH) MAN CARR MD May 05, 2024 11:29
[2024-05-05] MEDS: cefTRIAXone 1GM/50ML D5W 50 ML IV ONE (12:18)
--- NOTE | 2024-05-05 12:52 | DVH ---
CHEST RADIOGRAPH Indication: Shortness of breath Technique: Single frontal view of the chest was obtained Comparison: None FINDINGS: Lines and Tubes: None Lungs: No focal consolidation. Pleura: No effusion. No pneumothorax. Cardiomediastinal contours: Unremarkable Bones: No acute osseous abnormality. IMPRESSION: No acute cardiopulmonary disease.
[2024-05-05 13:00] VITALS: BP 119/57; PULSE 79; RESP 18; TEMP 98; O2SAT 94
[2024-05-05] MEDS: AZITHROMYCIN 500MG/ 250ML 250 ML IV ONE (13:52)
[2024-05-05 15:33] LABS: COVID19 ANTIGEN SOFIA FIA NEGATIVE (NEGATIVE)
[2024-05-05 15:44] LABS: Rapid Influenza B Negative (Negative)
[2024-05-05 15:52] LABS: Rapid Influenza A Positive (Negative)
[2024-05-05] MEDS ORDERED: OSELTAMIVIR 75 MG CAP PO SCH (22:00)
--- NOTE | 2024-05-06 08:07 | DVHDS2 ---
Discharge Summary Date of Admission May 03, 2024 at 13:24 Date of Discharge: May 05, 2024 Admitting Diagnosis Right flank pain Wounds: None Labs/Diagnostic Data: Laboratory Results Test 05/05/24 14:30 05/04/24 05:04 05/03/24 09:15 05/03/24 09:00 Influenza Type A Antigen Positive (Negative) Influenza Type B Antigen Negative (Negative) SARS-CoV-2 Antigen (Rapid) Negative (NEGATIVE) White Blood Count 6.7 10^3/uL (4.4-10.8) Red Blood Count 4.24 10^6/uL (4.0-5.20) Hemoglobin 11.6 g/dL (12.2-16.2) Hematocrit 35.0 % (36.0-46.0) Mean Corpuscular Volume 82.6 fL (80.0-100.0) Mean Corpuscular Hemoglobin 27.3 pg (28.0-32.0) Mean Corpuscular Hemoglobin Concent 33.1 g/dL (32.0-36.0) Red Cell Distribution Width 15.0 % (11.8-14.3) Platelet Count 228 10^3/uL (140-450) Mean Platelet Volume 8.8 fL (6.9-10.8) Neutrophils (%) (Auto) 55.7 % (37.0-80.0) Lymphocytes (%) (Auto) 33.3 % (10.0-50.0) Monocytes (%) (Auto) 8.0 % (0.0-12.0) Eosinophils (%) (Auto) 2.5 % (0.0-7.0) Basophils (%) (Auto) 0.5 % (0.0-2.0) Neutrophils # (Auto) 3.7 10 ^3/uL (1.6-8.6) Lymphocytes # (Auto) 2.2 10 ^3/uL (0.4-5.4) Monocytes # (Auto) 0.5 10 ^3/uL (0-1.3) Eosinophils # (Auto) 0.2 10 ^3/uL (0-0.8) Basophils # (Auto) 0 10 ^3/uL (0-0.2) Nucleated Red Blood Cells 0.1 % Sodium Level 141 mmol/L (136-145) Potassium Level 3.5 mmol/L (3.5-5.1) Chloride Level 111 mmol/L (98-107) Carbon Dioxide Level 24 mmol/L (20-31) Anion Gap 6 (5-15) Blood Urea Nitrogen 9 mg/dL (9-23) Creatinine 0.70 mg/dL (0.550-1.02) Glomerular Filtration Rate Calc 114 mL/min (>90) BUN/Creatinine Ratio 12.9 (10.0-20.0) Serum Glucose 99 mg/dL (74-106) Calcium Level 9.1 mg/dL (8.7-10.4) Total Bilirubin 0.5 mg/dL (0.2-1.0) Aspartate Amino Transferase (AST) 18 U/L (13-40) Alanine Aminotransferase (ALT) 22 U/L (7-40) Alkaline Phosphatase 94 U/L (46-116) Total Protein 6.1 g/dL (5.7-8.2) Albumin 3.8 g/dL (3.2-4.8) Beta HCG, Quantitative 1.8 mIU/mL (1.5-4.2) Urine Color Light-yellow (Yellow) Urine Clarity Clear (Clear) Urine pH 7.5 (5.0-9.0) Urine Specific [place] 1.019 (1.001-1.035) Urine Protein Negative (Negative) Urine Ketones Negative (Negative) Urine Blood 1+ /uL (Negative) Urine Nitrite Negative (Negative) Urine Bilirubin Negative (Negative) Urine Urobilinogen Normal mg/dL (Negative) Urine Leukocyte Esterase Negative /uL (Negative) Urine RBC 13 /hpf (0 - 4) Urine WBC 1 /hpf (0 - 5) Urine Squamous Epithelial Cells Few /hpf (<5) Urine Bacteria None seen /hpf (None Seen) Urine Glucose Normal mg/dL (Normal) Other Laboratory Tests 05/04/24 05:04 Brief Hx & Hospital Course: 38-year-old female with a history of kidney stones came in with a right flank pain found to have 5 mm right distal ureteral stone with hydronephrosis placed on Flomax [place] IV fluids consult by Urology Dr. Stroud who advised outpatient follow up in two weeks for the treatment of the stone. While about to be discharged home the patient looked sick and complaining of shortness of breath.. Flu test ordered came positive for influenza A placed on Tamiflu COVID test came negative. Chest x-ray negative for any pneumonia. While on treatment with the Tamiflu the patient got upset claiming that she got the flu after coming to the hospital, where as in fact she must have been incubating flu before she came to the hospital. The patient left AMA . consequences and complications including possible explained to the patient and she verbalized understanding. General condition satisfactory at the time of leaving AMA per nurse's note Consults/Reason for consult Urology Dr. Ulloa Operations or Procedures CT abdomen pelvis without contrast Condition at Discharge: Fair Final Diagnosis/Problems List Right flank Pain 5 mm right distal ureteral calculus with hydronephrosis: Flomax [place], consult for Urology Dr. Ulloa appreciated, advised outpatient follow up in two weeks History of kidney stones Acute dehydration: IV fluids Influenza A Discharge Disposition: AMA Discharge Instruct/Medications Diet comment: Not applicable Patient left AMA Activity comment: Not applicable Patient left AMA Follow Up/Referral: Not applicable Patient left AMA Medications: Not applicable Patient left AMA 39 (Time taken for discharge summary 39 minutes) Discharge Statement: "Patient was advised to return to the ER or call 911 if any headaches, dizziness, shortness of breath, chest pain, abdominal pain, bleeding, fevers, or worsening of medical condition. Patient was counseled about treatment plan, medications, possible side effects, patientverbalized understanding. All questions were answered to the best of my ability. This discharge took greater then 30 minutes in planning, reviewing documentation, counseling the patient, and discussing with other team members." ASSESSMENT ASSESSMENT Hospital Course Patient left AMA Assessment Date of Service: May 06, 2024 Billing Provider: MAN CARR MD Common Visit Codes: [id number] DISCH DAY >30min MAN CARR MD May 06, 2024 08:07
[2024-05-06] MEDS ORDERED: cefTRIAXone 1GM/50ML D5W 50 ML IV SCH (09:00)
[2024-05-06] MEDS ORDERED: AZITHROMYCIN 250 MG TAB PO SCH (10:00)
[2024-05-06] MEDS ORDERED: AZITHROMYCIN 500MG/ 250ML 250 ML IV SCH (10:00)
== END 2024-05-05 17:35 | disposition left against medical advice (07) | DRG 694 ==
LOC: ER 08:47 → OVERFLOW 13:24 → WEST WING 17:32 → UNDODISIN 05-05 17:35
PROVIDERS: ADMIT Nurse Practitioner Family; ATTEND Family Medicine
DX: N13.2 Hydronephrosis with renal and ureteral calculous obstruction (principal); Z53.29 Procedure and treatment not carried out because of patient's decision for other reasons; E86.0 Dehydration; J10.1 Influenza due to other identified influenza virus with other respiratory manifestations; Z20.822 Contact with and (suspected) exposure to COVID-19; Z79.899 Other long term (current) drug therapy; Z98.891 History of uterine scar from previous surgery; Z87.442 Personal history of urinary calculi
CPT/HCPCS: 36415; 71045; 74176; 76775; 80048; 80053; 81001; 84702; 85025; 87081; 87426; 87804; 99291; G0378; J1885; J2405